=== PATIENT | female | born 1985 | race Caucasian/White ===

== ENCOUNTER 2018-04-02 01:21 | Emergency (ER) | payer OTHER, MEDICAID, SELFPAY ==
[2018-04-02 01:35] VITALS: BP 121/59; PULSE 82; RESP 16; TEMP 36.7; O2SAT 100; BMI 25.7
[2018-04-02 01:42] VITALS: BP 121/59; PULSE 82; RESP 16; TEMP 36.7; O2SAT 100; BMI 25.7
--- NOTE | 2018-04-02 02:24 | DI.RAD.S_ITS ---
PROCEDURE: XR ABDOMEN MIN 2V INDICATIONS: pain vomiting TECHNIQUE: 2 views of the abdomen were acquired. COMPARISON: [facility], , ABDOMEN ACUTE SERIES, 03/22/2011, 18:30. FINDINGS: Surgical changes and devices: Umbilical jewelry again noted. Bowel: No pneumoperitoneum. The bowel gas pattern is normal. Soft tissues: No masses; visualized solid organ contours appear normal in size. No suspicious abdominal calcifications. Bones: No suspicious bony abnormalities. IMPRESSION: Normal abdomen Dictated by: Toan Mustafa M.D. on 04/02/2018 at 9:25 Approved by: Toan Mustafa M.D. on 04/02/2018 at 9:26
[2018-04-02] MEDS: SODIUM CHLORIDE 0.9% 1,000 ML 1000 ML IV (02:32)
[2018-04-02] MEDS: ONDANSETRON 4 MG/2 ML INJ IV (02:32)
[2018-04-02] MEDS: KETOROLAC 60 MG/2 ML VIAL 30 MG IV (02:32)
[2018-04-02 02:42] LABS: Add Manual Diff / Slide Review NO; Basophils Percent Auto 0.5 % (0-2); Eosinophils Percent Auto 4.1 % (2-4); Hematocrit 40.3 % (36-46); Hemoglobin 13.9 g/dL (12.0-16.0); Lymphocytes Percent Auto 47.4 % (25-40); Mean Corpuscular HGB Conc 34.5 % (30-36); Mean Corpuscular Hemoglobin 32.8 PG (26-34); Mean Corpuscular Volume 95.3 fL (80-100); Monocytes Percent Auto 7.4 % (3-14); Neutrophils Absolute Auto 3400 /uL (3000-5900); Neutrophils Percent Auto 40.6 % (50-75); Platelet Count 242 X10^3/uL (150-400); Red Blood Cell Count 4.23 X10^6/uL (4.0-5.2); Red Cell Distribution Width 13.2 % (11.6-14.8); White Blood Cell Count 8.3 X10^3/uL (4.5-11.0)
[2018-04-02 02:47] LABS: Alanine Aminotransferase 278 IU/L (9-52); Albumin 4.4 g/dL (3.5-5.0); Albumin Globulin Ratio 1.5 (1.0-2.8); Alkaline Phosphatase 86 U/L (38-126); Aspartate Aminotransferase 64 IU/L (14-36); Bilirubin Total 0.3 mg/dL (0.2-1.3); Blood Urea Nitrogen 18 mg/dL (7-17); Calcium 9.4 mg/dL (8.4-10.2); Carbon Dioxide 28 mmol/L (22-32); Chloride 102 mmol/L (98-107); Estimated Glomerular Filt Rate > 60.0 mL/min (>60); Glucose 86 mg/dL (70-100); HEMOLYSIS < 15 (0-50); Lipase 78 U/L (23-300); Potassium 4.3 mmol/L (3.4-5.1); Sodium 141 mmol/L (137-145); Total Protein 7.4 g/dL (6.3-8.2)
--- NOTE | 2018-04-02 03:42 | ED_ITS ---
HPI - Abdominal Pain General Chief Complaint: Abdominal Pain Stated Complaint: abd pain, almost passed out Time Seen by Provider: 04/02/18 02:17 Source: patient Mode of arrival: ambulatory Limitations: no limitations History of Present Illness HPI narrative: Patient is a 33-year-old female presenting with abdominal pain and vomiting. She was fine earlier today when this evening pain woke her up. She has been vomiting she has intense cramping. No diarrhea. 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 Related Data Home Medications Medication Instructions Recorded Confirmed albuterol sulfate [Ventolin HFA] 2 puff INH Q4HP #0 02/07/12 sumatriptan succinate [Imitrex 4 mg SQ PRN #0 03/11/12 STATdose Pen] diazepam 5 mg PO PRN PRN #0 11/01/16 promethazine 25 mg PO Q6HP PRN #0 11/01/16 docusate sodium 100 mg PO QDAY #0 11/08/16 clonazepam 2 mg PO HSP PRN #0 02/11/17 cyclobenzaprine 10 mg PO TIDP PRN #0 02/11/17 Previous Rx's Medication Instructions Recorded ondansetron [Zofran ODT] 4 mg SUBLINGUAL Q6HP PRN #20 odt 02/11/17 albuterol sulfate [Ventolin HFA] 2 puff INH Q4HP PRN #1 ea 07/29/17 amoxicillin-pot clavulanate 875 mg PO Q12H #20 tab 07/29/17 [Augmentin] fluticasone [Flovent HFA] 3 puff INH BID #1 inh 07/29/17 prednisone 20 mg PO QDAY #8 tab 07/29/17 ondansetron 4 mg PO Q6-8H PRN #10 tab 04/02/18 Allergies Allergy/AdvReac Type Severity Reaction Status Date / Time varenicline Allergy Unknown Verified 04/02/18 04:52 hydrocodone AdvReac Mild VOMITING - Verified 04/02/18 04:49 CAN TAKE W/ PHENERGAN Review of Systems Review of Systems GENERAL: Denies chills, fatigue, malaise, fever, sweats, travel HEENT: Denies sinus pain, ear pain, sore throat, difficulty swallowing, neck pain RESPIRATORY: Denies dyspnea, cough, wheezing, hemoptysis, sputum. CARDIOVASCULAR: Denies chest pain, palpitations, orthopnea, edema GASTROINTESTINAL: See HPI : Denies dysuria, frequency, incontinence, hematuria, urinary retention, flank pain. MUSCULOSKELETAL: Denies weakness, joint pain, or bony pain SKIN: No rash, no erythema, no pruritus NEUROLOGIC: Denies weakness, dizziness, headache, numbness, change in speech, confusion PSYCHIATRIC: No concerning psychosocial issues. 12 point review of systems is negative except for those stated above and HPI PFSH Surgical History History of third molar tooth extraction Status post breast reduction Status post hysterectomy Status post laparoscopy (09/22/14) Social History Smoking Status: Former smoker Exam Initial Vital Signs Initial Vital Signs: Vital Signs Temperature 98.1 F 04/02/18 01:35 Pulse Rate 82 04/02/18 01:35 Respiratory Rate 16 04/02/18 01:35 Blood Pressure 121/59 H 04/02/18 01:35 Pulse Oximetry 100 04/02/18 01:35 GENERAL: In position appears in pain HEENT: Head atraumatic,EOMI, pupils reactive, neck is supple CARDIOVASCULAR: Regular rate and rhythm without murmurs, rubs or gallops. RESPIRATORY: Breath sounds equal bilaterally, no wheezes rales or rhonchi. ABDOMEN: Soft, no tender all across abdomen no localization no distension all no guarding no rebound negative Lamb sign slightly more tender in epigastric area : No CVA tenderness EXTREMITIES: Normal range of motion, no clubbing or edema. Neurovascularly intact NEUROLOGICAL: Alert and oriented x4.Normal gait and speech. Cranial nerves II through XII grossly intact. SKIN: Warm, dry, no laceration, no petechiae, no rashes or lesions. Course Orders Ordered: ED Orders 04/02/18 01:55 Complete Blood Count AUTO DIFF Stat Comprehensive Metabolic Panel Stat Lipase Stat 04/02/18 02:24 XR abdomen min 2V Stat 04/02/18 04:21 US abdomen complete Stat Discontinued Medications Sodium Chloride (Normal Saline 0.9%) 1,000 mls @ 1,000 mls/hr IV CONT RICHY Last Infusion: 04/02/18 04:56 Dose: 1,000 mls/hr Admin: 04/02/18 02:32 Dose: 1,000 mls/hr Ketorolac Tromethamine (Toradol) 30 mg IV NOW ONE Stop: 04/02/18 02:24 Last Admin: 04/02/18 02:32 Dose: 30 mg Morphine Sulfate (Morphine Sulfate) 2 mg IV NOW ONE Stop: 04/02/18 04:45 Last Admin: 04/02/18 04:56 Dose: 2 mg Ondansetron HCl (Zofran) 4 mg IV NOW ONE Stop: 04/02/18 02:24 Last Admin: 04/02/18 02:32 Dose: 4 mg Vital Signs - 8 hr 04/02/18 01:35 04/02/18 01:42 04/02/18 04:22 Temperature 98.1 F 98.1 F Pulse Rate 82 82 72 Respiratory Rate 16 16 16 Blood Pressure 121/59 H 121/59 H Blood Pressure [Left Arm] 98/44 L Pulse Oximetry 100 100 97 04/02/18 06:31 Temperature Pulse Rate 65 Respiratory Rate 17 Blood Pressure 98/72 Blood Pressure [Left Arm] Pulse Oximetry 98 MDM - Abdominal Pain Lab Data Attestation: I reviewed the patient's lab results. Result diagrams: 04/02/18 01:55 04/02/18 01:55 Lab Results 04/02/18 04/02/18 Range/Units 01:55 01:55 WBC 8.3 (4.5-11.0) X10^3/uL RBC 4.23 (4.0-5.2) X10^6/uL Hgb 13.9 (12.0-16.0) g/dL Hct 40.3 (36-46) % MCV 95.3 (80-100) fL MCH 32.8 (26-34) PG MCHC 34.5 (30-36) % RDW 13.2 (11.6-14.8) % Plt Count 242 (150-400) X10^3/uL Neut % (Auto) 40.6 L (50-75) % Lymph % (Auto) 47.4 H (25-40) % Toombs % (Auto) 7.4 (3-14) % Eos % (Auto) 4.1 H (2-4) % Baso % (Auto) 0.5 (0-2) % Neut # (Auto) 3400 (3294-3874) /uL Sodium 141 (137-145) mmol/L Potassium 4.3 (3.4-5.1) mmol/L Chloride 102 (98-107) mmol/L Carbon Dioxide 28 (22-32) mmol/L BUN 18 H (7-17) mg/dL Creatinine 0.90 (0.52-1.04) mg/dL Estimated GFR > 60.0 (>60) mL/min BUN/Creatinine Ratio 20.0 (6-22) Glucose 86 (70-100) mg/dL Calcium 9.4 (8.4-10.2) mg/dL Total Bilirubin 0.3 (0.2-1.3) mg/dL AST 64 H (14-36) IU/L ALT 278 H (9-52) IU/L Alkaline Phosphatase 86 (38-126) U/L Total Protein 7.4 (6.3-8.2) g/dL Albumin 4.4 (3.5-5.0) g/dL Globulin 3.0 (1.7-4.1) g/dL Albumin/Globulin Ratio 1.5 (1.0-2.8) Lipase 78 (23-300) U/L Imaging Data Abdominal x-ray: Attestation: I personally reviewed and interpreted this imaging study as follows: My impression: No acute obstruction US - abdomen: Radiologist's impression: services account manager report: Contracted gallbladder. Inhomogeneous hepatic steatosis statistically versus other hepatocellular process. Pancreas tail not optimally seen. Other findings above. MDM Narrative Medical decision making narrative: Patient is feeling better after morphine. ALT elevated more than AST. Unlikely to be alcohol. No sign of gallbladder disease. She has appointment with a GI specialist. At this time she is feeling better no sign of infection. Discharge Plan Departure Patient Disposition: Home, Self-Care Clinical Impression: Abdominal pain Discharge Date/Time: 04/02/18 06:31 Interventions: ED Discharge Assessment Last Done: 04/02/18 06:31 Instructions: DI for Abdominal Pain-Adult Activity Restrictions/Additional Instructions: *You have been diagnosed with abdominal pain *What to do: Blood work, x-ray and ultrasound are okay. Your liver enzymes ALT is slightly elevated recommend having this recheck *Continue to take medications as directed -Zofran every 6-8 hours if needed for nausea or vomiting *Follow up with your primary care provider in 2-3 days *Return to ER if you should have worsening pain, inability to tolerate fluids or any new, worsening or concerning symptoms Prescriptions: New ondansetron 4 mg tablet,disintegrating 4 mg PO Q6-8H PRN (Reason: nausea and vomiting) Qty: 10 RF: 0 No Action albuterol sulfate [Ventolin HFA] 90 MCG/PUFF HFA aerosol inhaler 2 puff INH Q4HP Qty: 0 RF: 0 sumatriptan succinate [Imitrex STATdose Pen] 4 MG/0.5 ML pen injector 4 mg SQ PRN Qty: 0 RF: 0 diazepam 5 MG tablet 5 mg PO PRN PRNQty: 0 RF: 0 promethazine 25 MG tablet 25 mg PO Q6HP PRNQty: 0 RF: 0 docusate sodium 100 MG capsule 100 mg PO QDAY Qty: 0 RF: 0 cyclobenzaprine 10 MG tablet 10 mg PO TIDP PRNQty: 0 RF: 0 clonazepam 2 MG tablet 2 mg PO HSP PRNQty: 0 RF: 0 ondansetron [Zofran ODT] 4 MG tablet,disintegrating 4 mg Sublingual Q6HP PRNQty: 20 RF: 0 amoxicillin-pot clavulanate [Augmentin] 875 MG/125 MG tablet 875 mg PO Q12H Qty: 20 RF: 0 prednisone 20 MG tablet 20 mg PO QDAY Qty: 8 RF: 0 albuterol sulfate [Ventolin HFA] 90 MCG/PUFF HFA aerosol inhaler 2 puff INH Q4HP PRNQty: 1 RF: 0 fluticasone [Flovent HFA] 12 GM HFA aerosol inhaler 3 puff INH BID Qty: 1 RF: 0
--- NOTE | 2018-04-02 04:21 | DI.US.S_ITS ---
PROCEDURE: US ABDOMEN COMPLETE INDICATIONS: ruq pain TECHNIQUE: Real-time scanning was performed of the abdominal and retroperitoneal organs, with image documentation. COMPARISON: [facility], US, ABDOMEN COMPLETE, 05/31/2014, 12:30. [facility], CT, KIDNEY/ URETER/BLADDER, 07/06/2014, 10:03. [facility], CT, ABDOMEN/PELVIS WITH CONTRAST, 09/24/2014, 1:51. [facility], CT, KIDNEY/ URETER/BLADDER, 11/27/2015, 21:02. [facility], CT, ABDOMEN/PELVIS WITH CONTRAST, 11/17/2016, 21:38. FINDINGS: Liver: Liver is normal in size and homogeneous in echotexture. Gallbladder: Gallbladder is contracted. No visible stones. Biliary ducts: Intrahepatic bile ducts are non-dilated. Extrahepatic bile duct caliber measures 5 mm. Normal is 6-7 mm or less in diameter, or 10 mm or less post-cholecystectomy. Pancreas: Visualized portions of the pancreas are sonographically normal. Tail is obscured. Spleen: Spleen is normal in size and homogeneous in echotexture. Kidneys: Kidneys are normal in size and echotexture. Right kidney measures 10.6 cm long; left kidney measures 12.3 cm long. No hydronephrosis or nephrolithiasis. No solid masses. Aorta: Visualized aorta is normal in caliber at less than 3 cm. central portion is obscured. Iliacs: Iliac vessels are obscured by gas IVC: Intrahepatic inferior vena cava is patent. Miscellaneous: No free abdominal fluid. IMPRESSION: No acute findings seen. Gallbladder is contracted and not well-visualized. Mid aorta and iliac vessels are obscured by bowel Dictated by: Toan Mustafa M.D. on 04/02/2018 at 9:29 Approved by: Toan Mustafa M.D. on 04/02/2018 at 9:31
[2018-04-02 04:22] VITALS: BP 98/44; PULSE 72; RESP 16; O2SAT 97
[2018-04-02] MEDS: MORPHINE 5 MG/ML INJ 2 MG IV (04:56)
[2018-04-02 06:31] VITALS: BP 98/72; PULSE 65; RESP 17; O2SAT 98
== END 2018-04-02 06:31 | disposition home or self-care (01) ==
PROVIDERS: Emergency Provider Emergency Medicine; PCP Family Medicine
DX: R10.9 Unspecified abdominal pain (principal)
CPT/HCPCS: 36591; 74019; 76700; 80053; 83690; 85025; 96361; 96374; 96375; 99283; 99284; J1885; J2270; J2405

== ENCOUNTER 2018-09-26 20:58 | Emergency (ER) | payer OTHER, MEDICAID, SELFPAY ==
[2018-09-26 21:14] VITALS: BP 121/88; PULSE 106; RESP 22; TEMP 36.7; O2SAT 100; BMI 26.6
[2018-09-26] MEDS: KETOROLAC 60 MG/2 ML VIAL IM (21:30)
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
[2018-09-26 22:02] VITALS: BP 116/74; PULSE 79; RESP 18; O2SAT 100
== END 2018-09-26 22:04 | disposition home or self-care (01) ==
PROVIDERS: Emergency Provider Emergency Medicine; PCP Family Medicine
DX: T22.60XA Corrosion of second degree of shoulder and upper limb, except wrist and hand, unspecified site, initial encounter (principal); T32.0 Corrosions involving less than 10% of body surface; Y99.0 Civilian activity done for income or pay; Y93.E9 Activity, other interior property and clothing maintenance
CPT/HCPCS: 99282; 99283; J1885

== ENCOUNTER 2018-12-03 07:03 | Emergency (ER) | payer OTHER, MEDICAID, SELFPAY ==
[2018-12-03 07:08] VITALS: BP 140/79; PULSE 98; RESP 18; TEMP 36.8; O2SAT 100; BMI 25.0
--- NOTE | 2018-12-03 07:57 | ED.UPPEXIN ---
HPI - Extremity Injury (Upper) General Chief Complaint: Extremity Injury, Upper Stated Complaint: thinks elbow is broken Time Seen by Provider: 12/03/18 07:33 Source: patient Mode of arrival: ambulatory Limitations: no limitations History of Present Illness HPI narrative: This is a 33-year-old female comes to the emergency department with complaint of left upper extremity injury. 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 They are moving a refrigerator. Her son is 16 and she states very awkward and while they were trying to slide removed the Fridge her left arm got stuck between the wall in the Fridge. She states that it took a minute or 2 for them to be able to remove the refrigerator. Patient has a lot of swelling and bruising over the lateral condyle of the left elbow. She states she has pain in the elbow as well as radiating down the arm and into the fingers as well as up into the shoulder area. She states the shoulder itself was not caught between the Fridge and the wall. Patient can move her fingers but it is uncomfortable. She states she has pain particularly in her pinky finger. States she has tingling up and down her entire arm. She is able to move the elbow as well as the shoulder. She has some abrasions and scrapes as well over the elbow. She believes her tetanus is up-to-date. She has a history of migraines, fibromyalgia, hysterectomy as well as single oophorectomy. Related Data Home Medications Medication Instructions Recorded Confirmed albuterol sulfate [Ventolin HFA] 2 puff INH Q4HP #0 02/07/12 sumatriptan succinate [Imitrex 4 mg SQ PRN #0 03/11/12 STATdose Pen] diazepam 5 mg PO PRN PRN #0 11/01/16 promethazine 25 mg PO Q6HP PRN #0 11/01/16 docusate sodium 100 mg PO QDAY #0 11/08/16 clonazepam 2 mg PO HSP PRN #0 02/11/17 cyclobenzaprine 10 mg PO TIDP PRN #0 02/11/17 Previous Rx's Medication Instructions Recorded ondansetron [Zofran ODT] 4 mg SUBLINGUAL Q6HP PRN #20 odt 02/11/17 albuterol sulfate [Ventolin HFA] 2 puff INH Q4HP PRN #1 ea 07/29/17 amoxicillin-pot clavulanate 875 mg PO Q12H #20 tab 07/29/17 [Augmentin] fluticasone propionate [Flovent 3 puff INH BID #1 inh 07/29/17 HFA] prednisone 20 mg PO QDAY #8 tab 07/29/17 ondansetron 4 mg PO Q6-8H PRN #10 tab 04/02/18 Allergies Allergy/AdvReac Type Severity Reaction Status Date / Time varenicline Allergy Unknown Verified 12/03/18 07:38 hydrocodone AdvReac Mild VOMITING - Verified 12/03/18 07:38 CAN TAKE W/ PHENERGAN Review of Systems Review of Systems ROS Unobtainable: All systems reviewed & are unremarkable except as noted in HPI and below Musculoskeletal Reports as per HPI, Reports arthralgias (left elbow), Reports joint swelling, Reports limited range of motion, Denies muscle weakness, Reports numbness, Reports radiating pain into limb, Reports stiffness and Reports tingling Integumentary/Breasts Reports as per HPI, Reports unusual bruising and Reports wounds (abrasions over elbow.) Neurologic Denies focal weakness, Reports numbness and Reports tingling [facility] Medical History Migraines (Chronic) Up to date with tetanus toxoid immunization (Acute) Surgical History History of third molar tooth extraction Status post breast reduction Status post hysterectomy Status post laparoscopy (09/22/14) Social History Smoking Status: Former smoker Social History Smoking Status: Former smoker Exam Narrative Exam Narrative: GENERAL: Alert and oriented x three, well-nourished, well-appearing female in mild distress. HEENT: Head normocephalic, atraumatic, EOMI, pupils reactive, face symmetric, moist mucous membranes NECK: Supple, full range of motion CARDIOVASCULAR: Regular rate and rhythm without murmurs, rubs or gallops. RESPIRATORY: Breath sounds equal bilaterally, no wheezes rales or rhonchi. ABDOMEN: Soft, nontender. Normoactive bowel sounds all 4 quadrants. No guarding or rebound, rigidity, no mass EXTREMITIES: Normal range of motion The left upper extremity, patient has slightly decreased circular sawyer stone on the left comparison to the right but has full range of motion of her fingers and I suspect some his discomfort and not wishing to squeeze tightly, patient has some bruising over the lateral condyle some around the elbow, she has very mild tenderness over the lateral condyle. None over the medial. The patient does not have any other bony tenderness throughout the hand, forearm or upper extremity. She has normal sensation throughout to light touch. She has 2+ radial pulse. Less than 2 seconds capillary refill in all 5 fingers. no clubbing or edema. Neurovascularly intact NEUROLOGICAL: Cranial nerves II through XII grossly intact. Moving all extremities SKIN: Warm, dry, no petechiae, \ Patient has several small abrasions over the lateral elbow the longus which is a cm and a half. They are superficial. Initial Vital Signs Initial Vital Signs: Vital Signs Temperature 98.3 F 12/03/18 07:08 Pulse Rate 98 H 12/03/18 07:08 Respiratory Rate 18 12/03/18 07:08 Blood Pressure 140/79 12/03/18 07:08 Pulse Oximetry 100 12/03/18 07:08 Course Orders Ordered: ED Orders 12/03/18 07:56 XR elbow LT min 3V Stat Vital Signs - 8 hr 12/03/18 07:08 12/03/18 08:48 Temperature 98.3 F Pulse Rate 98 H 77 Respiratory Rate 18 16 Blood Pressure 140/79 Blood Pressure [Right Arm] 113/62 Pulse Oximetry 100 98 MDM - Extremity Injury (Upper) Imaging Data Left elbow xray: Radiologist's impression: [address] [address] XRay Report Signed Patient: Coral Mendoza LMR#: [id number] : 1985Acct:[id number] Age/Sex: 33 / FDate of Service: 12/03/18 Loc: ED Accession Number: [id number] Procedure: XR elbow LT min 3V Ordering Provider: Mamta Nunez D.O. PROCEDURE: XR ELBOW LT MIN 3V INDICATIONS: bruising over lateral condyle, was moving fridge TECHNIQUE: 3 views of the elbow were acquired. COMPARISON: None. FINDINGS: Bones: No fractures or dislocations. No suspicious bony lesions. Soft tissues: No elbow joint effusion. No suspicious soft tissue calcifications. IMPRESSION: Intact left elbow. Dictated by: Ambar Bejarano M.D. on 12/03/2018 at 8:37 Approved by: Ambar Bejarano M.D. on 12/03/2018 at 8:38 [facility] Narrative Medical decision making narrative: Patient's x-ray is negative. She has range of motion she does have some contusion over the condyle. Discussed and she asked if she can sling for a day or 2. We did give her 1 and a discussed with her risks for frozen shoulder and she needs to make sure and use move her shoulder regularly to avoid this. Patient states that she is not supposed to have NSAIDs secondary to prior ulcers we discussed she can do Tylenol. She has a prescription for Flexeril if she needs it. Ice and/or heat as needed and rest. Discharge Plan Departure Patient Disposition: Home Clinical Impression: Contusion of elbow, left Discharge Date/Time: 12/03/18 09:06 Interventions: ED Discharge Assessment Last Done: 12/03/18 09:06 Instructions: DI for Elbow Pain Activity Restrictions/Additional Instructions: Follow up with primary care in 7-10 days if symptoms are not improving. You may take Tylenol up to a 1000 mg every 8 hours needed. If you tolerate NSAIDs you may take ibuprofen 600 mg every 6 hours as needed. You may use ice and/or heat to the affected area as tolerated. Wound Care: Keep wound(s) clean and dry. Wash daily with soap and water only. Do not use over the counter products (alcohol or peroxide)on the wounds unless instructed by a physician. If wound condition worsens (increased/expanding redness, developing fluid blisters, or worsening pain), either contact your doctor for an urgent re-assessment , or return to the Emergency Department. Return if fever greater than 100.4 Fahrenheit, increased swelling, increasing pain or worsening symptoms such as increased discharge or spreading redness. New weakness, loss of sensation, inability to circular sawyer stone or hold objects, or other new or concerning symptoms. Prescriptions: No Action albuterol sulfate [Ventolin HFA] 90 MCG/PUFF HFA aerosol inhaler 2 puff INH Q4HP Qty: 0 RF: 0 sumatriptan succinate [Imitrex STATdose Pen] 4 MG/0.5 ML pen injector 4 mg SQ PRN Qty: 0 RF: 0 diazepam 5 MG tablet 5 mg PO PRN PRNQty: 0 RF: 0 promethazine 25 MG tablet 25 mg PO Q6HP PRNQty: 0 RF: 0 docusate sodium 100 MG capsule 100 mg PO QDAY Qty: 0 RF: 0 cyclobenzaprine 10 MG tablet 10 mg PO TIDP PRNQty: 0 RF: 0 clonazepam 2 MG tablet 2 mg PO HSP PRNQty: 0 RF: 0 ondansetron [Zofran ODT] 4 MG tablet,disintegrating 4 mg Sublingual Q6HP PRNQty: 20 RF: 0 amoxicillin-pot clavulanate [Augmentin] 875 MG/125 MG tablet 875 mg PO Q12H Qty: 20 RF: 0 prednisone 20 MG tablet 20 mg PO QDAY Qty: 8 RF: 0 albuterol sulfate [Ventolin HFA] 90 MCG/PUFF HFA aerosol inhaler 2 puff INH Q4HP PRNQty: 1 RF: 0 fluticasone propionate [Flovent HFA] 12 GM HFA aerosol inhaler 3 puff INH BID Qty: 1 RF: 0 ondansetron 4 mg tablet,disintegrating 4 mg PO Q6-8H PRN (Reason: nausea and vomiting) Qty: 10 RF: 0 Referrals: Dre Maxwell MD [Primary Care Provider] - Stand Alone Forms: Work Release Note
--- NOTE | 2018-12-03 08:03 | ED_ITS ---
HPI - Extremity Injury (Upper) General Chief Complaint: Extremity Injury, Upper Stated Complaint: thinks elbow is broken Time Seen by Provider: 12/03/18 07:33 Source: patient Mode of arrival: ambulatory Limitations: no limitations History of Present Illness HPI narrative: This is a 33-year-old female comes to the emergency department with complaint of left upper extremity injury. 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 They are moving a refrigerator. Her son is 16 and she states very awkward and while they were trying to slide removed the Fridge her left arm got stuck between the wall in the Fridge. She states that it took a minute or 2 for them to be able to remove the refrigerator. Patient has a lot of swelling and bruising over the lateral condyle of the left elbow. She states she has pain in the elbow as well as radiating down the arm and into the fingers as well as up into the shoulder area. She states the shoulder itself was not caught between the Fridge and the wall. Patient can move her fingers but it is uncomfortable. She states she has pain particularly in her pinky finger. States she has tingling up and down her entire arm. She is able to move the elbow as well as the shoulder. She has some abrasions and scrapes as well over the elbow. She believes her tetanus is up-to-date. She has a history of migraines, fibromyalgia, hysterectomy as well as single oophorectomy. Related Data Home Medications Medication Instructions Recorded Confirmed albuterol sulfate [Ventolin HFA] 2 puff INH Q4HP #0 02/07/12 sumatriptan succinate [Imitrex 4 mg SQ PRN #0 03/11/12 STATdose Pen] diazepam 5 mg PO PRN PRN #0 11/01/16 promethazine 25 mg PO Q6HP PRN #0 11/01/16 docusate sodium 100 mg PO QDAY #0 11/08/16 clonazepam 2 mg PO HSP PRN #0 02/11/17 cyclobenzaprine 10 mg PO TIDP PRN #0 02/11/17 Previous Rx's Medication Instructions Recorded ondansetron [Zofran ODT] 4 mg SUBLINGUAL Q6HP PRN #20 odt 02/11/17 albuterol sulfate [Ventolin HFA] 2 puff INH Q4HP PRN #1 ea 07/29/17 amoxicillin-pot clavulanate 875 mg PO Q12H #20 tab 07/29/17 [Augmentin] fluticasone propionate [Flovent 3 puff INH BID #1 inh 07/29/17 HFA] prednisone 20 mg PO QDAY #8 tab 07/29/17 ondansetron 4 mg PO Q6-8H PRN #10 tab 04/02/18 Allergies Allergy/AdvReac Type Severity Reaction Status Date / Time varenicline Allergy Unknown Verified 12/03/18 07:38 hydrocodone AdvReac Mild VOMITING - Verified 12/03/18 07:38 CAN TAKE W/ PHENERGAN Review of Systems Review of Systems ROS Unobtainable: All systems reviewed & are unremarkable except as noted in HPI and below Musculoskeletal Reports as per HPI, Reports arthralgias (left elbow), Reports joint swelling, Reports limited range of motion, Denies muscle weakness, Reports numbness, Reports radiating pain into limb, Reports stiffness and Reports tingling Integumentary/Breasts Reports as per HPI, Reports unusual bruising and Reports wounds (abrasions over elbow.) Neurologic Denies focal weakness, Reports numbness and Reports tingling [facility] Medical History Migraines (Chronic) Up to date with tetanus toxoid immunization (Acute) Surgical History History of third molar tooth extraction Status post breast reduction Status post hysterectomy Status post laparoscopy (09/22/14) Social History Smoking Status: Former smoker Social History Smoking Status: Former smoker Exam Narrative Exam Narrative: GENERAL: Alert and oriented x three, well-nourished, well- appearing female in mild distress. HEENT: Head normocephalic, atraumatic, EOMI, pupils reactive, face symmetric, moist mucous membranes NECK: Supple, full range of motion CARDIOVASCULAR: Regular rate and rhythm without murmurs, rubs or gallops. RESPIRATORY: Breath sounds equal bilaterally, no wheezes rales or rhonchi. ABDOMEN: Soft, nontender. Normoactive bowel sounds all 4 quadrants. No guarding or rebound, rigidity, no mass EXTREMITIES: Normal range of motion The left upper extremity, patient has slightly decreased cottage parent on the left comparison to the right but has full range of motion of her fingers and I suspect some his discomfort and not wishing to squeeze tightly, patient has some bruising over the lateral condyle some around the elbow, she has very mild tenderness over the lateral condyle. None over the medial. The patient does not have any other bony tenderness throughout the hand, forearm or upper extremity. She has normal sensation throughout to light touch. She has 2+ radial pulse. Less than 2 seconds capillary refill in all 5 fingers. no clubbing or edema. Neurovascularly intact NEUROLOGICAL: Cranial nerves II through XII grossly intact. Moving all extremities SKIN: Warm, dry, no petechiae, \ Patient has several small abrasions over the lateral elbow the longus which is a cm and a half. They are superficial. Initial Vital Signs Initial Vital Signs: Vital Signs Temperature 98.3 F 12/03/18 07:08 Pulse Rate 98 H 12/03/18 07:08 Respiratory Rate 18 12/03/18 07:08 Blood Pressure 140/79 12/03/18 07:08 Pulse Oximetry 100 12/03/18 07:08 Course Orders Ordered: ED Orders 12/03/18 07:56 XR elbow LT min 3V Stat Vital Signs - 8 hr 12/03/18 07:08 12/03/18 08:48 Temperature 98.3 F Pulse Rate 98 H 77 Respiratory Rate 18 16 Blood Pressure 140/79 Blood Pressure [Right Arm] 113/62 Pulse Oximetry 100 98 MDM - Extremity Injury (Upper) Imaging Data Left elbow xray: Radiologist's impression: [address] [address] XRay Report Signed Patient: Coral Mendoza LMR#: [id number] : 1985Acct:[id number] Age/Sex: 33 / FDate of Service: 12/03/18 Loc: ED Accession Number: [id number] Procedure: XR elbow LT min 3V Ordering Provider: Mamta Nunez D.O. PROCEDURE: XR ELBOW LT MIN 3V INDICATIONS: bruising over lateral condyle, was moving fridge TECHNIQUE: 3 views of the elbow were acquired. COMPARISON: None. FINDINGS: Bones: No fractures or dislocations. No suspicious bony lesions. Soft tissues: No elbow joint effusion. No suspicious soft tissue calcifications. IMPRESSION: Intact left elbow. Dictated by: Ambar Bejarano M.D. on 12/03/2018 at 8:37 Approved by: Ambar Bejarano M.D. on 12/03/2018 at 8:38 [facility] Narrative Medical decision making narrative: Patient's x-ray is negative. She has range of motion she does have some contusion over the condyle. Discussed and she asked if she can sling for a day or 2. We did give her 1 and a discussed with her risks for frozen shoulder and she needs to make sure and use move her shou lder regularly to avoid this. Patient states that she is not supposed to have NSAIDs secondary to prior ulcers we discussed she can do Tylenol. She has a prescription for Flexeril if she needs it. Ice and/or heat as needed and rest. Discharge Plan Departure Patient Disposition: Home Clinical Impression: Contusion of elbow, left Discharge Date/Time: 12/03/18 09:06 Interventions: ED Discharge Assessment Last Done: 12/03/18 09:06 Instructions: DI for Elbow Pain Activity Restrictions/Additional Instructions: Follow up with primary care in 7-10 days if symptoms are not improving. You may take Tylenol up to a 1000 mg every 8 hours needed. If you tolerate NSAIDs you may take ibuprofen 600 mg every 6 hours as needed. You may use ice and/or heat to the affected area as tolerated. Wound Care: Keep wound(s) clean and dry. Wash daily with soap and water only. Do not use over the counter products (alcohol or peroxide)on the wounds unless instructed by a physician. If wound condition worsens (increased/expanding redness, developing fluid blisters, or worsening pain), either contact your doctor for an urgent re- assessment , or return to the Emergency Department. Return if fever greater than 100.4 Fahrenheit, increased swelling, increasing pain or worsening symptoms such as increased discharge or spreading redness. New weakness, loss of sensation, inability to cottage parent or hold objects, or other new or concerning symptoms. Prescriptions: No Action albuterol sulfate [Ventolin HFA] 90 MCG/PUFF HFA aerosol inhaler 2 puff INH Q4HP Qty: 0 RF: 0 sumatriptan succinate [Imitrex STATdose Pen] 4 MG/0.5 ML pen injector 4 mg SQ PRN Qty: 0 RF: 0 diazepam 5 MG tablet 5 mg PO PRN PRNQty: 0 RF: 0 promethazine 25 MG tablet 25 mg PO Q6HP PRNQty: 0 RF: 0 docusate sodium 100 MG capsule 100 mg PO QDAY Qty: 0 RF: 0 cyclobenzaprine 10 MG tablet 10 mg PO TIDP PRNQty: 0 RF: 0 clonazepam 2 MG tablet 2 mg PO HSP PRNQty: 0 RF: 0 ondansetron [Zofran ODT] 4 MG tablet,disintegrating 4 mg Sublingual Q6HP PRNQty: 20 RF: 0 amoxicillin-pot clavulanate [Augmentin] 875 MG/125 MG tablet 875 mg PO Q12H Qty: 20 RF: 0 prednisone 20 MG tablet 20 mg PO QDAY Qty: 8 RF: 0 albuterol sulfate [Ventolin HFA] 90 MCG/PUFF HFA aerosol inhaler 2 puff INH Q4HP PRNQty: 1 RF: 0 fluticasone propionate [Flovent HFA] 12 GM HFA aerosol inhaler 3 puff INH BID Qty: 1 RF: 0 ondansetron 4 mg tablet,disintegrating 4 mg PO Q6-8H PRN (Reason: nausea and vomiting) Qty: 10 RF: 0 Referrals: Dre Maxwell MD [Primary Care Provider] - Stand Alone Forms: Work Release Note
[2018-12-03 08:48] VITALS: BP 113/62; PULSE 77; RESP 16; O2SAT 98
== END 2018-12-03 09:06 | disposition home or self-care (01) ==
PROVIDERS: Emergency Provider Emergency Medicine; PCP Family Medicine
DX: S50.02XA Contusion of left elbow, initial encounter (principal)
CPT/HCPCS: 73080; 99282; 99283

== ENCOUNTER → 2019-02-02 10:40 | Outpatient (CLI) | payer OTHER, MEDICAID, SELFPAY ==
--- NOTE | 2019-02-02 10:44 | DI.RAD.S_ITS ---
PROCEDURE: XR ELBOW LT MIN 3V INDICATIONS: Left elbow pain TECHNIQUE: 3 views of the elbow were acquired. COMPARISON: [facility], CR, XR ELBOW LT MIN 3V, 12/03/2018, 8:08. FINDINGS: Bones: No fractures or dislocations. No suspicious bony lesions. Soft tissues: No elbow joint effusion. No suspicious soft tissue calcifications. IMPRESSION: No fracture or subluxation, no joint effusion seen. Dictated by: Siddharth Parsons M.D. on 02/02/2019 at 11:51 Approved by: Siddharth Parsons M.D. on 02/02/2019 at 11:51
== END ==
PROVIDERS: PCP Family Medicine; Visit Provider Physician Assistant
DX: M25.522 Pain in left elbow (principal)
CPT/HCPCS: 73080

== ENCOUNTER 2019-02-17 11:55 | Emergency (ER) | payer OTHER, MEDICAID, SELFPAY ==
[2019-02-17 11:58] VITALS: BP 122/73; PULSE 85; RESP 24; TEMP 36.5; O2SAT 97
--- NOTE | 2019-02-17 12:04 | DI.RAD.S_ITS ---
PROCEDURE: XR CHEST 1V INDICATIONS: chest pain TECHNIQUE: One view of the chest was acquired. COMPARISON: [facility], , CHEST 2 VIEW, 07/29/2017, 18:35. FINDINGS: Surgical changes and devices: None. Lungs and pleura: Lungs are clear. No pleural effusions or pneumothorax. Mediastinum: Mediastinal contours appear normal. Heart size is normal. Bones and chest wall: No suspicious bony lesions. Overlying soft tissues appear unremarkable. IMPRESSION: No acute cardiopulmonary disease. Dictated by: Aysha Jasso M.D. on 02/17/2019 at 12:23 Approved by: Aysha Jasso M.D. on 02/17/2019 at 12:23
--- NOTE | 2019-02-17 12:07 | ED.GENADULT ---
HPI - General Adult General Chief complaint: Chest Pain Stated complaint: Lungs and Heart need to be checked out Time Seen by Provider: 02/17/19 12:06 Source: patient Mode of arrival: ambulatory Limitations: no limitations History of Present Illness HPI narrative: Patient is a 33-year-old female who received a call from her primary provider earlier today. It appears that for the past several weeks the patient has had a cough and shortness of breath. Her primary provider was concerned about possible pneumonia or a pulmonary embolism. He recommended that if the studies here in the emergency department were negative to start her on some prednisone. Patient denies any fevers. Has not had a productive cough. No abdominal pain. No chest pain. Has not tried anything for symptoms. Related Data Home Medications Medication Instructions Recorded Confirmed diazepam 5 mg PO PRN PRN #0 11/01/16 02/17/19 clonazepam 2 mg PO BID #0 02/11/17 01/21/19 albuterol sulfate [Ventolin HFA] 2 puff INH Q4HP PRN 02/17/19 dextroamphetamine-amphetamine 30 mg PO TID 02/17/19 lorazepam 1 mg PO BID 02/17/19 02/17/19 naloxone [Narcan] 1 spray INTRANASAL PRN PRN 02/17/19 02/17/19 omeprazole 20 mg PO BID 02/17/19 02/17/19 Previous Rx's Medication Instructions Recorded prednisone 60 mg PO DAILY 5 Days #15 tab 02/17/19 Allergies Allergy/AdvReac Type Severity Reaction Status Date / Time varenicline Allergy Unknown Verified 02/01/19 18:22 hydrocodone AdvReac Mild VOMITING - Verified 02/01/19 18:22 CAN TAKE W/ PHENERGAN Review of Systems Constitutional Denies fever(s) and Denies headache(s) ENT Ears, Nose, Mouth, and Throat: Denies headache(s) Cardiovascular Denies chest pain and Reports dyspnea Respiratory Denies cough and Reports dyspnea Gastrointestinal Gastrointestinal: Denies abdominal pain, Denies nausea and Denies vomiting Musculoskeletal Denies myalgias and Denies arthralgias Integumentary/Breasts Denies rash Neurologic Denies headache(s) Hematologic/Lymphatic Denies easy bleeding and Denies easy bruising FOR[facility], LAT[facility] Medical History Up to date with tetanus toxoid immunization (Acute) Migraines (Chronic) Social History Smoking Status: Current every day smoker Exam Initial Vital Signs Initial Vital Signs: Vital Signs Temperature 97.7 F 02/17/19 11:58 Pulse Rate 85 02/17/19 11:58 Respiratory Rate 24 02/17/19 11:58 Blood Pressure 122/73 02/17/19 11:58 Pulse Oximetry 97 02/17/19 11:58 Const General: cooperative, comfortable, well developed, well groomed and No acute distress Orientation: alert, awake and oriented x3 HENMT Head: normal to inspection and normocephalic Resp Effort & Inspection: normal respiratory effort Auscultation: clear to auscultation bilaterally Cardio Rate: regular rate Rhythm: regular rhythm Pulses: radial pulses present Skin Lesions: no lesions Rashes: no rashes Neuro General: alert and awake Cognition: normal cognition Speech: speech normal Extrem General: normal to inspection, capillary refill normal and No edema Psych Appearance: grossly normal and well kempt Scores GCS [place] coma scale eye opening: Spontaneous [place] coma scale verbal response: Orientated [place] coma scale motor response: Obey commands [place] coma scale total score: 15 Course Orders Ordered: ED Orders 02/17/19 12:04 XR chest 1V Stat EKG-12 Lead Stat 02/17/19 12:42 Complete Blood Count AUTO DIFF Stat Comprehensive Metabolic Panel Stat Lipase Stat Partial Thromboplastin Time Stat Test Serum,Qual Stat Prothrombin Time INR Stat Thyroid Stimulating Hormone Stat Troponin & CK Cardiac Panel Stat 02/17/19 12:47 CT angio chest PE protocol Stat Vital Signs - 8 hr 02/17/19 11:58 Temperature 97.7 F Pulse Rate 85 Respiratory Rate 24 Blood Pressure 122/73 Pulse Oximetry 97 Medical Decision Making Lab Data Lab results reviewed: Yes I reviewed the patient's lab results. Result diagrams: 02/17/19 12:42 02/17/19 12:42 Lab Results 02/17/19 02/17/19 02/17/19 Range/Units 12:42 12:42 12:42 WBC 6.2 (4.5-11.0) X10^3/uL RBC 3.89 L (4.0-5.2) X10^6/uL Hgb 12.9 (12.0-16.0) g/dL Hct 37.5 (36-46) % MCV 96.5 (80-100) fL MCH 33.1 (26-34) PG MCHC 34.3 (30-36) % RDW 12.6 (11.6-14.8) % Plt Count 220 (150-400) X10^3/uL Neut % (Auto) 45.7 L (50-75) % Lymph % (Auto) 45.2 H (25-40) % [place] % (Auto) 5.9 (3-14) % Eos % (Auto) 2.7 (2-4) % Baso % (Auto) 0.5 (0-2) % Neut # (Auto) 2800 (5940-4953) /uL Lymph # (Auto) 2800 (8207-4777) /uL [place] # (Auto) 400 (0-900) /uL Eos # (Auto) 200 (0-450) /uL Baso # (Auto) 0 (0-100) /uL PT 11.6 (10.1-12.7) SECONDS INR 1.0 (0.9-1.3) APTT 33 (26.4-36.2) SECONDS Sodium 141 (137-145) mmol/L Potassium 4.0 (3.4-5.1) mmol/L Chloride 110 H (98-107) mmol/L Carbon Dioxide 24 (22-32) mmol/L BUN 16 (7-17) mg/dL Creatinine 0.60 (0.52-1.04) mg/dL Estimated GFR > 60.0 (>60) mL/min BUN/Creatinine Ratio 26.7 H (6-22) Glucose 89 (70-100) mg/dL Calcium 9.2 (8.4-10.2) mg/dL Total Bilirubin 0.6 (0.2-1.3) mg/dL AST 16 (14-36) IU/L ALT 10 (9-52) IU/L Alkaline Phosphatase 65 (38-126) U/L Total Creatine Kinase 57 (30-135) U/L CK-MB (CK-2) TNP CK-MB (CK-2) Rel Index TNP Troponin I < 0.012 (0.01-0.034) ng/mL Total Protein 6.6 (6.3-8.2) g/dL Albumin 4.0 (3.5-5.0) g/dL Globulin 2.6 (1.7-4.1) g/dL Albumin/Globulin Ratio 1.5 (1.0-2.8) Lipase 106 (23-300) U/L TSH (0.47-4.68) uIU/mL Serum , Qual (Negative) 02/17/19 02/17/19 Range/Units 12:42 12:42 WBC (4.5-11.0) X10^3/uL RBC (4.0-5.2) X10^6/uL Hgb (12.0-16.0) g/dL Hct (36-46) % MCV (80-100) fL MCH (26-34) PG MCHC (30-36) % RDW (11.6-14.8) % Plt Count (150-400) X10^3/uL Neut % (Auto) (50-75) % Lymph % (Auto) (25-40) % [place] % (Auto) (3-14) % Eos % (Auto) (2-4) % Baso % (Auto) (0-2) % Neut # (Auto) (9696-6746) /uL Lymph # (Auto) (1983-0216) /uL [place] # (Auto) (0-900) /uL Eos # (Auto) (0-450) /uL Baso # (Auto) (0-100) /uL PT (10.1-12.7) SECONDS INR (0.9-1.3) APTT (26.4-36.2) SECONDS Sodium (137-145) mmol/L Potassium (3.4-5.1) mmol/L Chloride (98-107) mmol/L Carbon Dioxide (22-32) mmol/L BUN (7-17) mg/dL Creatinine (0.52-1.04) mg/dL Estimated GFR (>60) mL/min BUN/Creatinine Ratio (6-22) Glucose (70-100) mg/dL Calcium (8.4-10.2) mg/dL Total Bilirubin (0.2-1.3) mg/dL AST (14-36) IU/L ALT (9-52) IU/L Alkaline Phosphatase (38-126) U/L Total Creatine Kinase (30-135) U/L CK-MB (CK-2) CK-MB (CK-2) Rel Index Troponin I (0.01-0.034) ng/mL Total Protein (6.3-8.2) g/dL Albumin (3.5-5.0) g/dL Globulin (1.7-4.1) g/dL Albumin/Globulin Ratio (1.0-2.8) Lipase (23-300) U/L TSH 0.28 L (0.47-4.68) uIU/mL Serum , Qual Negative (Negative) Imaging Data Chest x-ray: Radiologist's impression: [address] [address] XRay Report Signed Patient: Coral Gallardo LMR#: [id number] : 1985Acct:[id number] Age/Sex: 33 / FDate of Service: 02/17/19 Loc: ED Accession Number: [id number] Procedure: XR chest 1V Ordering Provider: Kentrell Friend D.O. PROCEDURE: XR CHEST 1V INDICATIONS: chest pain TECHNIQUE: One view of the chest was acquired. COMPARISON: [facility], CHEST 2 VIEW, 07/29/2017, 18:35. FINDINGS: Surgical changes and devices: None. Lungs and pleura: Lungs are clear. No pleural effusions or pneumothorax. Mediastinum: Mediastinal contours appear normal. Heart size is normal. Bones and chest wall: No suspicious bony lesions. Overlying soft tissues appear unremarkable. IMPRESSION: No acute cardiopulmonary disease. Dictated by: Aysha Jasso M.D. on 02/17/2019 at 12:23 Approved by: Aysha Jasso M.D. on 02/17/2019 at 12:23 CT chest: Radiologist's impression: [address] [address] [address] Scan Report Signed Patient: Coral Gallardo LMR#: [id number] : 1985Acct:[id number] Age/Sex: 33 / FDate of Service: 02/17/19 Loc: ED Accession Number: [id number] Procedure: CT angio chest PE protocol Ordering Provider: Kentrell Friend D.O. PROCEDURE: CT ANGIO CHEST PE PROTOCOL INDICATIONS: Chest pain, shortness of breath, tachycardia TECHNIQUE: After the administration of intravenous contrast, 2 mm thick sections acquired from the pulmonary apices to the posterior costophrenic angles. 3-dimensional maximum intensity projection (MIP) coronal and sagittal reformats were then acquired through the thorax. For radiation dose reduction, the following was used: automated exposure control, adjustment of mA and/or kV according to patient size. COMPARISON: [facility], CR, XR CHEST 1V, 02/17/2019, 12:12. FINDINGS: Image quality: Excellent. Pulmonary arteries: Pulmonary arteries are normal in size, and demonstrate no intraluminal filling defects to suggest central pulmonary embolism. Lungs and pleura: Lungs are clear. No pleural effusions or pneumothorax. Central and peripheral airways are patent. Mediastinum: Heart size is normal, without pericardial effusion. No mediastinal or hilar adenopathy. Thoracic aorta is normal in caliber and enhancement. Esophagus is normal in caliber, without a significant hiatal hernia. Bones and chest wall: No suspicious bony lesions. Ribs and thoracic spine appear intact throughout. Thyroid gland demonstrates no significant CT abnormality. No axillary or supraclavicular adenopathy. Abdomen: Visualized upper abdominal solid organs appear normal in the early arterial phase of enhancement. IMPRESSION: Negative for pulmonary embolism. Dictated by: Robert Aceves M.D. on 02/17/2019 at 12:43 Approved by: Robert Aceves M.D. on 02/17/2019 at 12:45 ECG Data Attestation: I personally reviewed and interpreted this ECG as follows: Prior ECG tracings: not available for review Interpretation: Sinus rhythm Ventricular rate is 79 Normal axis Normal QRS Normal QTC No ST T wave changes MDM Narrative Medical decision making narrative: Patient is no indication pneumonia. CTA shows no signs of pulmonary embolism. She is not hypoxic. Not in any respiratory distress. Was sent home on a short course of steroids. The TSH was ordered per her request. It is suggestive of hyperthyroid. She states that she has been hyperthyroid when she was . She was informed that she needed to talk with her primary doctor regarding follow-up with this. She expressed understanding and agreement plan. Discharge Plan Departure Patient Disposition: Home Clinical Impression: Breath shortness, Hyperthyroidism Instructions: How to Manage Shortness of Breath Activity Restrictions/Additional Instructions: Take the steroids as directed. Contact your primary care provider to continue treatment with your shortness of breath and also to talk about your thyroid issues. Return to the emergency department for any new or worsening symptoms Prescriptions: New prednisone 20 mg tablet 60 mg PO DAILY 5 Days Qty: 15 RF: 0 No Action diazepam 5 MG tablet 5 mg PO PRN PRN (Reason: Anxiety) Qty: 0 RF: 0 clonazepam 2 MG tablet 2 mg PO BID Qty: 0 RF: 0 dextroamphetamine-amphetamine 30 mg tablet 30 mg PO TID RF: 0 omeprazole 20 mg capsule,delayed release(DR/EC) 20 mg PO BID RF: 0 lorazepam 1 mg tablet 1 mg PO BID RF: 0 Narcan 4 mg/actuation spray,non-aerosol 1 spray intranasal PRN PRN (Reason: Opiate Reversal) RF: 0 albuterol sulfate [Ventolin HFA] 90 MCG/PUFF HFA aerosol inhaler 2 puff INH Q4HP PRN (Reason: Shortness Of Breath) RF: 0 Referrals: Dre Maxwell MD [Primary Care Provider] -
--- NOTE | 2019-02-17 12:47 | DI.CT.S_ITS ---
PROCEDURE: CT ANGIO CHEST PE PROTOCOL INDICATIONS: Chest pain, shortness of breath, tachycardia TECHNIQUE: After the administration of intravenous contrast, 2 mm thick sections acquired from the pulmonary apices to the posterior costophrenic angles. 3-dimensional maximum intensity projection (MIP) coronal and sagittal reformats were then acquired through the thorax. For radiation dose reduction, the following was used: automated exposure control, adjustment of mA and/or kV according to patient size. COMPARISON: [facility], CR, XR CHEST 1V, 02/17/2019, 12:12. FINDINGS: Image quality: Excellent. Pulmonary arteries: Pulmonary arteries are normal in size, and demonstrate no intraluminal filling defects to suggest central pulmonary embolism. Lungs and pleura: Lungs are clear. No pleural effusions or pneumothorax. Central and peripheral airways are patent. Mediastinum: Heart size is normal, without pericardial effusion. No mediastinal or hilar adenopathy. Thoracic aorta is normal in caliber and enhancement. Esophagus is normal in caliber, without a significant hiatal hernia. Bones and chest wall: No suspicious bony lesions. Ribs and thoracic spine appear intact throughout. Thyroid gland demonstrates no significant CT abnormality. No axillary or supraclavicular adenopathy. Abdomen: Visualized upper abdominal solid organs appear normal in the early arterial phase of enhancement. IMPRESSION: Negative for pulmonary embolism. Dictated by: Robert Aceves M.D. on 02/17/2019 at 12:43 Approved by: Robert Aceves M.D. on 02/17/2019 at 12:45
[2019-02-17 12:52] LABS: Add Manual Diff / Slide Review NO; Basophils Absolute Auto 0 /uL (0-100); Basophils Percent Auto 0.5 % (0-2); Eosinophils Absolute Auto 200 /uL (0-450); Eosinophils Percent Auto 2.7 % (2-4); Hematocrit 37.5 % (36-46); Hemoglobin 12.9 g/dL (12.0-16.0); Lymphocytes Absolute Auto 2800 /uL (1100-4500); Lymphocytes Percent Auto 45.2 % (25-40); Mean Corpuscular HGB Conc 34.3 % (30-36); Mean Corpuscular Hemoglobin 33.1 PG (26-34); Mean Corpuscular Volume 96.5 fL (80-100); Monocytes Absolute Auto 400 /uL (0-900); Monocytes Percent Auto 5.9 % (3-14); Neutrophils Absolute Auto 2800 /uL (1500-7000); Neutrophils Percent Auto 45.7 % (50-75); Platelet Count 220 X10^3/uL (150-400); Red Blood Cell Count 3.89 X10^6/uL (4.0-5.2); Red Cell Distribution Width 12.6 % (11.6-14.8); White Blood Cell Count 6.2 X10^3/uL (4.5-11.0)
[2019-02-17 13:00] VITALS: BP 108/74; PULSE 73; RESP 18; O2SAT 98
[2019-02-17 13:00] LABS: Prothrombin Time 11.6 SECONDS (10.1-12.7)
[2019-02-17 13:02] LABS: PTT Partial Thromboplastin Tim 33 SECONDS (26.4-36.2)
[2019-02-17 13:03] LABS: Alanine Aminotransferase 10 IU/L (9-52); Albumin Globulin Ratio 1.5 (1.0-2.8); Alkaline Phosphatase 65 U/L (38-126); Aspartate Aminotransferase 16 IU/L (14-36); BUN Creatinine Ratio 26.7 (6-22); Bilirubin Total 0.6 mg/dL (0.2-1.3); Blood Urea Nitrogen 16 mg/dL (7-17); Calcium 9.2 mg/dL (8.4-10.2); Carbon Dioxide 24 mmol/L (22-32); Chloride 110 mmol/L (98-107); Creatine Kinase 57 U/L (30-135); Estimated Glomerular Filt Rate > 60.0 mL/min (>60); Globulin 2.6 g/dL (1.7-4.1); Glucose 89 mg/dL (70-100); HEMOLYSIS < 15 (0-50); Lipase 106 U/L (23-300); Sodium 141 mmol/L (137-145); Total Protein 6.6 g/dL (6.3-8.2)
[2019-02-17 13:13] LABS: Pregnancy Test Serum,Qual Negative (Negative)
[2019-02-17 13:15] LABS: Troponin I < 0.012 ng/mL (0.01-0.034)
[2019-02-17 13:43] LABS: Thyroid Stimulating Hormone 0.28 uIU/mL (0.47-4.68)
[2019-02-17 13:45] VITALS: BP 110/74; PULSE 68; RESP 18; O2SAT 98
[2019-02-17 14:12] VITALS: BP 106/69; PULSE 71; RESP 16; O2SAT 99
== END 2019-02-17 14:26 | disposition home or self-care (01) ==
PROVIDERS: Emergency Provider Emergency Medicine; PCP Family Medicine
DX: R06.02 Shortness of breath (principal); E05.90 Thyrotoxicosis, unspecified without thyrotoxic crisis or storm; R07.89 Other chest pain
CPT/HCPCS: 36591; 71045; 71275; 80053; 82550; 83690; 84443; 84484; 84703; 85025; 85610; 85730; 93005; 99283; 99285; Q9967

== ENCOUNTER 2019-04-24 17:20 | Emergency (ER) | payer OTHER, MEDICAID, SELFPAY ==
[2019-04-24 17:27] VITALS: BP 128/88; PULSE 105; RESP 16; TEMP 36.8; O2SAT 99; BMI 25.0
[2019-04-24 17:43] LABS: Add Manual Diff / Slide Review NO; Basophils Absolute Auto 100 /uL (0-100); Basophils Percent Auto 0.7 % (0-2); Eosinophils Absolute Auto 200 /uL (0-450); Eosinophils Percent Auto 1.9 % (2-4); Hematocrit 41.7 % (36-46); Hemoglobin 14.6 g/dL (12.0-16.0); Lymphocytes Absolute Auto 3700 /uL (1100-4500); Lymphocytes Percent Auto 41.1 % (25-40); Mean Corpuscular Hemoglobin 33.8 PG (26-34); Mean Corpuscular Volume 96.5 fL (80-100); Monocytes Absolute Auto 700 /uL (0-900); Neutrophils Absolute Auto 4400 /uL (1500-7000); Neutrophils Percent Auto 48.3 % (50-75); Platelet Count 232 X10^3/uL (150-400); Red Blood Cell Count 4.32 X10^6/uL (4.0-5.2); Red Cell Distribution Width 13.1 % (11.6-14.8)
[2019-04-24 17:59] LABS: Albumin 4.2 g/dL (3.5-5.0); Albumin Globulin Ratio 1.3 (1.0-2.8); Alkaline Phosphatase 69 U/L (38-126); Amylase 74 U/L (30-110); Aspartate Aminotransferase 20 IU/L (14-36); BUN Creatinine Ratio 26.7 (6-22); Bilirubin Total 0.9 mg/dL (0.2-1.3); Blood Urea Nitrogen 16 mg/dL (7-17); Calcium 9.4 mg/dL (8.4-10.2); Carbon Dioxide 23 mmol/L (22-32); Chloride 108 mmol/L (98-107); Estimated Glomerular Filt Rate > 60.0 mL/min (>60); Globulin 3.2 g/dL (1.7-4.1); Glucose 93 mg/dL (70-100); Lipase 164 U/L (23-300); Potassium 4.2 mmol/L (3.4-5.1); Sodium 138 mmol/L (137-145); Total Protein 7.4 g/dL (6.3-8.2)
[2019-04-24] MEDS: SODIUM CHLORIDE 0.9% 1,000 ML 1000 ML IV ×2 (18:01→18:10)
[2019-04-24 18:04] LABS: Bacteria Urine Moderate (10-30); Mucus Urine 1+ (Negative); RBC Urine 1-5/HPF (0-5/HPF); Squamous Epithelial Cell Urine 5-10 /HPF (0-5/HPF); WBC Urine 0-1/HPF (0-5/HPF)
[2019-04-24 18:05] LABS: Culture Indicated Urine Cult Not Indicated
[2019-04-24] MEDS: ONDANSETRON 4 MG/2 ML INJ IV (18:07)
[2019-04-24] MEDS: MORPHINE 4 MG/ML INJ IV (18:07)
[2019-04-24 18:13] LABS: HEMOLYSIS 42 (0-50)
[2019-04-24 18:14] LABS: Alanine Aminotransferase 14 IU/L (9-52)
--- NOTE | 2019-04-24 18:17 | DI.CT.S_ITS ---
PROCEDURE: CT KIDNEY URETER BLADDER (KUB) INDICATIONS: left flank pain TECHNIQUE: Noncontrast 5 mm thick sections acquired from the diaphragms to the symphysis. 5 mm thick coronal and sagittal reformats were then performed. For radiation dose reduction, the following was used: automated exposure control, adjustment of mA and/or kV according to patient size. COMPARISON: [facility], CT, KIDNEY/ URETER/BLADDER, 11/27/2015, 21:02. [facility], CT, KIDNEY/ URETER/BLADDER, 07/06/2014, 10:03. FINDINGS: Image quality: Excellent. Lung bases: Lung bases are clear. Heart size is normal. Urinary system: Both kidneys are normal in size. No kidney stones. No hydronephrosis or perinephric fat stranding. Both ureters appear non-dilated throughout their expected courses. Bladder wall thickness is normal; no calcified bladder stones. Other solid organs: Liver is normal in size. Gallbladder appears normal. Pancreas is normal in contours. Spleen is normal in size. No adrenal nodules. Peritoneum and bowel: Unenhanced bowel loops demonstrate normal wall thickness and caliber. No free fluid or air. Nodes and vessels: No retroperitoneal or mesenteric adenopathy by size criteria. Aorta and inferior vena cava are normal in caliber. Abdominal wall: No ventral hernias. Pelvis: No free pelvic fluid. No inguinal hernias or adenopathy. Prior hysterectomy. Bones: No suspicious bony lesions. No vertebral body compression fractures. IMPRESSION: No urinary tract stone or obstruction found. Source of current reported left-sided flank pain is not seen. Prior hysterectomy. Dictated by: Siddharth Parsons M.D. on 04/24/2019 at 19:08 Approved by: Siddharth Parsons M.D. on 04/24/2019 at 19:09
--- NOTE | 2019-04-24 19:59 | ED.FEMALEGU ---
HPI - Female Genitourinary <CARYN Turner - Last Filed: 04/24/19 21:12> General Chief complaint: Urogenital-Female Stated complaint: states kidney issues Time Seen by Provider: 04/24/19 17:34 Source: patient Mode of arrival: ambulatory Limitations: no limitations History of Present Illness HPI Narrative: The patient is a 34-year-old female current smoker with history of kidney stones who presents with a chief complaint of left-sided flank pain. 3 days ago, and urinate some blood clots. She reports nausea and vomiting. She states that this is consistent with previous kidney stones. She states that yesterday she had a temperature of up to 101, but is not have 1 today. She denies any cough, congestion, chest pain or shortness of breath. She denies any vaginal discharge, lower abdominal pain other than her left-sided flank pain or concern about sexually transmitted infections. 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 She thinks that her flank pain could be from a UTI, kidney stone and/or dehydration Related Data Home Medications Medication Instructions Recorded Confirmed diazepam 5 mg PO PRN PRN #0 11/01/16 02/17/19 clonazepam 2 mg PO BID #0 02/11/17 02/17/19 albuterol sulfate [Ventolin HFA] 2 puff INH Q4HP PRN 02/17/19 02/17/19 dextroamphetamine-amphetamine 30 mg PO TID 02/17/19 02/17/19 lorazepam 1 mg PO BID 02/17/19 02/17/19 naloxone [Narcan] 1 spray INTRANASAL PRN PRN 02/17/19 02/17/19 omeprazole 20 mg PO BID 02/17/19 02/17/19 Allergies Allergy/AdvReac Type Severity Reaction Status Date / Time varenicline Allergy Unknown Verified 04/24/19 17:31 hydrocodone AdvReac Mild VOMITING - Verified 04/24/19 17:31 CAN TAKE W/ PHENERGAN Review of Systems <CARYN Turner - Last Filed: 04/24/19 21:12> Review of Systems GENERAL: Denies chills, fatigue, malaise, fever, sweats. HEENT: Denies sinus pain, ear pain, sore throat, difficulty swallowing, dizziness. RESPIRATORY: Denies dyspnea, cough, wheezing, hemoptysis, sputum. CARDIOVASCULAR: Denies chest pain, palpitations, orthopnea, edema, GASTROINTESTINAL: See HPI : See HPI MUSCULOSKELETAL: denies weakness, joint pain, or bony pain SKIN: Denies rash, skin lesions, or other NEUROLOGIC: Denies weakness, headache, numbness, change in speech, confusion, seizures, incoordination. PSYCHIATRIC: No concerning psychosocial issues. 12 point review of systems is negative except for those stated above PFSH <CARYN Turner - Last Filed: 04/24/19 21:12> Medical History Up to date with tetanus toxoid immunization (Acute) Migraines (Chronic) Surgical History History of third molar tooth extraction Status post breast reduction Status post hysterectomy Status post laparoscopy (09/22/14) Social History Smoking Status: Current every day smoker Social History Smoking Status: Current every day smoker Exam <CARYN Turner - Last Filed: 04/24/19 21:12> Narrative Exam Narrative: GENERAL: This is a well-nourished, well-developed patient, appears uncomfortable HEAD: Atraumatic. Normocephalic. No temporal or scalp tenderness. EYES: Pupils equal round and reactive. Extraocular motions intact. No scleral icterus. No injection or drainage. ENT: Nose without bleeding, purulent drainage or septal hematoma. Throat without erythema, tonsillar hypertrophy or exudate. Uvula midline. Airway patent. NECK: Trachea midline. No JVD or lymphadenopathy. Supple, nontender, no meningeal signs. CARDIOVASCULAR: Regular rate and rhythm without murmurs, gallops, or rubs. RESPIRATORY: Clear to auscultation. Breath sounds equal bilaterally. No wheezes, rales, or rhonchi. No cough. No increased respiratory effort. No accessory muscle use. GASTROINTESTINAL: Abdomen soft, diffuse tenderness left lower quadrant, nondistended. No hepato-splenomegaly, or palpable masses. No guarding. Active bowel sounds all 4 quadrants. EXTREMITIES: No clubbing, cyanosis, or edema. No joint tenderness, effusion, or edema noted. BACK: Nontender without deformity or crepitance. CVA tenderness noted on left side. No CVA tenderness right side. NEURO: AOx3. SKIN: No rash or erythema. Initial Vital Signs Initial Vital Signs: Vital Signs Temperature 98.3 F 04/24/19 17:27 Pulse Rate 105 H 04/24/19 17:27 Respiratory Rate 16 04/24/19 17:27 Blood Pressure 128/88 04/24/19 17:27 Pulse Oximetry 99 04/24/19 17:27 <Rene Larsen DO - Last Filed: 04/25/19 04:06> Initial Vital Signs Initial Vital Signs: Vital Signs Temperature 98.3 F 04/24/19 17:27 Pulse Rate 105 H 04/24/19 17:27 Respiratory Rate 16 04/24/19 17:27 Blood Pressure 128/88 04/24/19 17:27 Pulse Oximetry 99 04/24/19 17:27 Course <EMA Turner-BC - Last Filed: 04/24/19 21:12> Orders Ordered: Discontinued Medications Sodium Chloride (Normal Saline 0.9%) 1,000 mls @ 1,000 mls/hr IV BOLUS ONE Stop: 04/24/19 18:35 Last Infusion: 04/24/19 19:39 Dose: 0 mls/hr Admin: 04/24/19 18:01 Dose: 1,000 mls/hr Sodium Chloride (Normal Saline 0.9%) 1,000 mls @ 1,000 mls/hr IV BOLUS ONE Stop: 04/24/19 18:48 Last Infusion: 04/24/19 21:02 Dose: 0 mls/hr Admin: 04/24/19 18:10 Dose: 1,000 mls/hr Ketorolac Tromethamine (Toradol) 30 mg IV NOW ONE Stop: 04/24/19 20:30 Last Admin: 04/24/19 20:35 Dose: Not Given Morphine Sulfate (Morphine) 4 mg IV NOW ONE Stop: 04/24/19 17:50 Last Admin: 04/24/19 18:07 Dose: 4 mg Ondansetron HCl (Zofran) 4 mg IV NOW ONE Stop: 04/24/19 17:50 Last Admin: 04/24/19 18:07 Dose: 4 mg Vital Signs - 8 hr 04/24/19 17:27 04/24/19 20:00 Temperature 98.3 F Pulse Rate 105 H 94 H Respiratory Rate 16 Blood Pressure 128/88 Blood Pressure [Right Arm] 108/62 Pulse Oximetry 99 98 <Rene Larsen DO - Last Filed: 04/25/19 04:06> Orders Ordered: Discontinued Medications Sodium Chloride (Normal Saline 0.9%) 1,000 mls @ 1,000 mls/hr IV BOLUS ONE Stop: 04/24/19 18:35 Last Infusion: 04/24/19 19:39 Dose: 0 mls/hr Admin: 04/24/19 18:01 Dose: 1,000 mls/hr Sodium Chloride (Normal Saline 0.9%) 1,000 mls @ 1,000 mls/hr IV BOLUS ONE Stop: 04/24/19 18:48 Last Infusion: 04/24/19 21:02 Dose: 0 mls/hr Admin: 04/24/19 18:10 Dose: 1,000 mls/hr Ketorolac Tromethamine (Toradol) 30 mg IV NOW ONE Stop: 04/24/19 20:30 Last Admin: 04/24/19 20:35 Dose: Not Given Morphine Sulfate (Morphine) 4 mg IV NOW ONE Stop: 04/24/19 17:50 Last Admin: 04/24/19 18:07 Dose: 4 mg Ondansetron HCl (Zofran) 4 mg IV NOW ONE Stop: 04/24/19 17:50 Last Admin: 04/24/19 18:07 Dose: 4 mg Vital Signs - 8 hr 04/24/19 17:27 04/24/19 20:00 Temperature 98.3 F Pulse Rate 105 H 94 H Respiratory Rate 16 Blood Pressure 128/88 Blood Pressure [Right Arm] 108/62 Pulse Oximetry 99 98 MDM - Female Genitourinary <EMA Turner- - Last Filed: 04/24/19 21:12> Lab Data Result diagrams: 04/24/19 17:41 04/24/19 17:41 Lab Results 08/18/19 08/18/19 08/18/19 Range/Units 17:41 17:41 17:53 WBC 9.0 (4.5-11.0) X10^3/uL RBC 4.32 (4.0-5.2) X10^6/uL Hgb 14.6 (12.0-16.0) g/dL Hct 41.7 (36-46) % MCV 96.5 (80-100) fL MCH 33.8 (26-34) PG MCHC 35.0 (30-36) % RDW 13.1 (11.6-14.8) % Plt Count 232 (150-400) X10^3/uL Neut % (Auto) 48.3 L (50-75) % Lymph % (Auto) 41.1 H (25-40) % [place] % (Auto) 8.0 (3-14) % Eos % (Auto) 1.9 L (2-4) % Baso % (Auto) 0.7 (0-2) % Neut # (Auto) 4400 (5324-8258) /uL Lymph # (Auto) 3700 (5796-0467) /uL [place] # (Auto) 700 (0-900) /uL Eos # (Auto) 200 (0-450) /uL Baso # (Auto) 100 (0-100) /uL Sodium 138 (137-145) mmol/L Potassium 4.2 (3.4-5.1) mmol/L Chloride 108 H (98-107) mmol/L Carbon Dioxide 23 (22-32) mmol/L BUN 16 (7-17) mg/dL Creatinine 0.60 (0.52-1.04) mg/dL Estimated GFR > 60.0 (>60) mL/min BUN/Creatinine Ratio 26.7 H (6-22) Glucose 93 (70-100) mg/dL Calcium 9.4 (8.4-10.2) mg/dL Total Bilirubin 0.9 (0.2-1.3) mg/dL AST 20 (14-36) IU/L ALT 14 (9-52) IU/L Alkaline Phosphatase 69 (38-126) U/L Total Protein 7.4 (6.3-8.2) g/dL Albumin 4.2 (3.5-5.0) g/dL Globulin 3.2 (1.7-4.1) g/dL Albumin/Globulin Ratio 1.3 (1.0-2.8) Amylase 74 (30-110) U/L Lipase 164 (23-300) U/L Urine RBC 1-5/hpf (0-5/HPF) Urine WBC 0-1/hpf (0-5/HPF) Ur Squamous Epith Cells 5-10 /hpf H (0-5/HPF) Urine Bacteria Moderate (10-30) H (None) Urine Mucus 1+ H (Negative) Ur Culture Indicated? Cult not indicated Micro UA Comment Urine Dip Bedside Urine Glucose Negative Bedside Urine Bilirubin - Negative Bedside Urine Ketone +/- 5 Urine Specific [place] 1.030 Bedside Urine Occult Blood - Negative Bedside Urine pH 6.0 Bedside Urine Protein +/- 15 Bedside Urine Urobilinogen +/- 1mg Bedside Urine Nitrite - Negative Bedside Urine Leukocytes - Negative Esterase Imaging Data CT KUB: Radiologist's impression: [address] [address] [address] Scan Report Signed Patient: Coral Gallardo LMR#: [id number] : 1985Acct:[id number] Age/Sex: 34 / FDate of Service: 04/24/19 Loc: ED Accession Number: [id number] Procedure: CT kidney ureter bladder (KUB) Ordering Provider: Mamta Weiner PROCEDURE: CT KIDNEY URETER BLADDER (KUB) INDICATIONS: left flank pain TECHNIQUE: Noncontrast 5 mm thick sections acquired from the diaphragms to the symphysis. 5 mm thick coronal and sagittal reformats were then performed. For radiation dose reduction, the following was used: automated exposure control, adjustment of mA and/or kV according to patient size. COMPARISON: [facility], CT, KIDNEY/ URETER/BLADDER, 11/27/2015, 21:02. [facility], CT, KIDNEY/ URETER/BLADDER, 07/06/2014, 10:03. FINDINGS: Image quality: Excellent. Lung bases: Lung bases are clear. Heart size is normal. Urinary system: Both kidneys are normal in size. No kidney stones. No hydronephrosis or perinephric fat stranding. Both ureters appear non-dilated throughout their expected courses. Bladder wall thickness is normal; no calcified bladder stones. Other solid organs: Liver is normal in size. Gallbladder appears normal. Pancreas is normal in contours. Spleen is normal in size. No adrenal nodules. Peritoneum and bowel: Unenhanced bowel loops demonstrate normal wall thickness and caliber. No free fluid or air. Nodes and vessels: No retroperitoneal or mesenteric adenopathy by size criteria. Aorta and inferior vena cava are normal in caliber. Abdominal wall: No ventral hernias. Pelvis: No free pelvic fluid. No inguinal hernias or adenopathy. Prior hysterectomy. Bones: No suspicious bony lesions. No vertebral body compression fractures. IMPRESSION: No urinary tract stone or obstruction found. Source of current reported left-sided flank pain is not seen. Prior hysterectomy. Dictated by: Siddharth Parsons M.D. on 04/24/2019 at 19:08 Approved by: Siddharth Parsons M.D. on 04/24/2019 at 19:09 [facility] Narrative Medical decision making narrative: The patient is a 34-year-old female who presents with a chief complaint of flank pain. She is concerned about a kidney stone, however has a negative CT KUB. The patient has no leukocytosis, no right lower quadrant pain, a nonacute abdominal exam. She is initially treated with IV fluids and morphine. She was also given Zofran. Her 1st urinalysis came back with many squamous, too many squamous to warrant a urine culture. This sample was some small cannot be spun in the lab. In the meantime a 2nd L of IV fluid is given. The patient stated her pain was coming back, I which point she was offered Toradol. The patient declined the Toradol, and stated she wanted something stronger. I discussed that the Toradol works well for kidney pain. The patient and her friend requested IV Dilaudid. I stated that without a specific indication, I would like to try IV Toradol 1st for hurts NSAID an anti-inflammatory effects. The patient was yelling, swearing in the exam room that I was not listening to her or respecting her pain. I discussed that we have been listening to her, which is why she is given several L of IV fluids as well as had a CT KUB. Likely the patient is without fever, leukocytosis and has normal kidney function in the emergency department. I discussed that I would like to get a 2nd urinalysis that could be spine in order to help rule out infection. She elected to leave against medical advice as I would not give her other narcotics prior to trying Toradol. She signed out against medical advice. <Rene De La Cruzan, DO - Last Filed: 04/25/19 04:06> Lab Data Lab Results 04/24/19 04/24/19 04/24/19 Range/Units 17:41 17:41 17:53 WBC 9.0 (4.5-11.0) X10^3/uL RBC 4.32 (4.0-5.2) X10^6/uL Hgb 14.6 (12.0-16.0) g/dL Hct 41.7 (36-46) % MCV 96.5 (80-100) fL MCH 33.8 (26-34) PG MCHC 35.0 (30-36) % RDW 13.1 (11.6-14.8) % Plt Count 232 (150-400) X10^3/uL Neut % (Auto) 48.3 L (50-75) % Lymph % (Auto) 41.1 H (25-40) % [place] % (Auto) 8.0 (3-14) % Eos % (Auto) 1.9 L (2-4) % Baso % (Auto) 0.7 (0-2) % Neut # (Auto) 4400 (2804-3083) /uL Lymph # (Auto) 3700 (1178-7715) /uL [place] # (Auto) 700 (0-900) /uL Eos # (Auto) 200 (0-450) /uL Baso # (Auto) 100 (0-100) /uL Sodium 138 (137-145) mmol/L Potassium 4.2 (3.4-5.1) mmol/L Chloride 108 H (98-107) mmol/L Carbon Dioxide 23 (22-32) mmol/L BUN 16 (7-17) mg/dL Creatinine 0.60 (0.52-1.04) mg/dL Estimated GFR > 60.0 (>60) mL/min BUN/Creatinine Ratio 26.7 H (6-22) Glucose 93 (70-100) mg/dL Calcium 9.4 (8.4-10.2) mg/dL Total Bilirubin 0.9 (0.2-1.3) mg/dL AST 20 (14-36) IU/L ALT 14 (9-52) IU/L Alkaline Phosphatase 69 (38-126) U/L Total Protein 7.4 (6.3-8.2) g/dL Albumin 4.2 (3.5-5.0) g/dL Globulin 3.2 (1.7-4.1) g/dL Albumin/Globulin Ratio 1.3 (1.0-2.8) Amylase 74 (30-110) U/L Lipase 164 (23-300) U/L Urine RBC 1-5/hpf (0-5/HPF) Urine WBC 0-1/hpf (0-5/HPF) Ur Squamous Epith Cells 5-10 /hpf H (0-5/HPF) Urine Bacteria Moderate (10-30) H (None) Urine Mucus 1+ H (Negative) Ur Culture Indicated? Cult not indicated Micro UA Comment Urine Dip Bedside Urine Glucose Negative Bedside Urine Bilirubin - Negative Bedside Urine Ketone +/- 5 Urine Specific [place] 1.030 Bedside Urine Occult Blood - Negative Bedside Urine pH 6.0 Bedside Urine Protein +/- 15 Bedside Urine Urobilinogen +/- 1mg Bedside Urine Nitrite - Negative Bedside Urine Leukocytes - Negative Esterase Discharge Plan Departure Patient Disposition: Home Clinical Impression: Left against medical advice Discharge Date/Time: 04/24/19 21:00 Interventions: ED Discharge Assessment Last Done: 04/24/19 21:17 Prescriptions: No Action diazepam 5 MG tablet 5 mg PO PRN PRN (Reason: Anxiety) Qty: 0 RF: 0 clonazepam 2 MG tablet 2 mg PO BID Qty: 0 RF: 0 dextroamphetamine-amphetamine 30 mg tablet 30 mg PO TID RF: 0 omeprazole 20 mg capsule,delayed release(DR/EC) 20 mg PO BID RF: 0 lorazepam 1 mg tablet 1 mg PO BID RF: 0 Narcan 4 mg/actuation spray,non-aerosol 1 spray intranasal PRN PRN (Reason: Opiate Reversal) RF: 0 albuterol sulfate [Ventolin HFA] 90 MCG/PUFF HFA aerosol inhaler 2 puff INH Q4HP PRN (Reason: Shortness Of Breath) RF: 0 Referrals: Dre Maxwell MD [Primary Care Provider] - <Rene Larsen DO - Last Filed: 04/25/19 04:06> Cosign ED Attending Dorothy Attestation: I was immediately available in the department for consultation. Documentation has been reviewed. I agree with assessment and plan.
[2019-04-24 20:00] VITALS: BP 108/62; PULSE 94; O2SAT 98
--- NOTE | 2019-04-24 20:13 | PC.NURSE ---
Pt assisted to bathroom where she was only about void scant amt urine (~5ml). Pt c/o increasing pain, Regine notified. Urine sent for UA per Regine's order.
--- NOTE | 2019-04-24 20:45 | PC.NURSE ---
Pt is becoming increasingly anxious/agitated, states she wants to leave. All you're doing for me is giving me fluid, I can drink water at home. Plan of care reviewed with pt-- that it may take 3-4 liters of IVF for a dehydrated pt to produce urine, and she has only had 1.5liters in. Pt c/o increasing pain-- offered Toradol but declined. Pt stating repeatedly that she wants to go, I reviewed plan of care again and encouraged her to stay for hydration and further monitoring. Regine at bedside to speak with pt, pt is now considering whether to leave AMA or stay.
--- NOTE | 2019-04-24 21:05 | PC.NURSE ---
Pt was eating a burrito with a friend at the bedside when I returned to ask if she had decided to stay. Pt was upset, stated that Regine had told her she could finish her IVF, receive abx and pain med, and go home. Expressed frustration about perceived lack of communication between staff. Pt requested dilaudid. Plan of care reviewed again with pt-- toradol for pain, hydration to produce a larger urine sample. Pt tearful, agitated. Stated, This is bullshit, I'm going to call Dinesh and submit a grievance. Emotional support given without effect, pt signed out AMA and left department.
== END 2019-04-24 21:00 | disposition home or self-care (01) ==
PROVIDERS: Emergency Provider Nurse Practitioner Family; PCP Family Medicine
DX: R10.9 Unspecified abdominal pain (principal); Z53.21 Procedure and treatment not carried out due to patient leaving prior to being seen by health care provider
CPT/HCPCS: 36591; 51798; 74176; 80053; 81003; 81015; 82150; 83690; 85025; 96361; 96374; 96375; 99284; J1885; J2270; J2405

== ENCOUNTER → 2019-04-28 16:28 | Outpatient (CLI) | payer OTHER, MEDICAID, SELFPAY | PROVIDERS: PCP Family Medicine; Visit Provider Family Medicine | DX: N15.9 Renal tubulo-interstitial disease, unspecified (principal) | CPT/HCPCS: 87086 ==

== ENCOUNTER 2019-06-02 06:06 | Emergency (ER) | payer OTHER, MEDICAID, SELFPAY ==
[2019-06-02 06:15] VITALS: BP 137/102; PULSE 103; RESP 20; TEMP 37.1; O2SAT 98; BMI 22.7
--- NOTE | 2019-06-02 06:17 | DI.RAD.S_ITS ---
PROCEDURE: XR CHEST 1V INDICATIONS: injury to chest TECHNIQUE: One view of the chest was acquired. COMPARISON: [facility], CT, CT CHEST ABD PEL W CON, 06/02/2019, 6:24. [facility], CR, XR CHEST 1V, 02/17/2019, 12:12. FINDINGS: Surgical changes and devices: None. Lungs and pleura: Lungs are clear. No pleural effusions or pneumothorax. Mediastinum: Mediastinal contours appear normal. Heart size is normal. Bones and chest wall: No suspicious bony lesions. Overlying soft tissues appear unremarkable. IMPRESSION: No acute cardiopulmonary disease. Dictated by: Aysha Jasso M.D. on 06/02/2019 at 8:49 Approved by: Aysha Jasso M.D. on 06/02/2019 at 8:50
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
[2019-06-02] MEDS: ALBUTEROL/IPRATROPIUM 3 ML AMPUL INH (06:27)
[2019-06-02 06:29] VITALS: PULSE 103; RESP 20; O2SAT 98
[2019-06-02] MEDS: ONDANSETRON 4 MG/2 ML INJ IV (06:40)
[2019-06-02 06:41] LABS: Add Manual Diff / Slide Review NO; Basophils Absolute Auto 100 /uL (0-100); Basophils Percent Auto 0.6 % (0-2); Eosinophils Absolute Auto 100 /uL (0-450); Eosinophils Percent Auto 1.6 % (2-4); Hematocrit 42.8 % (36-46); Hemoglobin 14.8 g/dL (12.0-16.0); Lymphocytes Absolute Auto 4800 /uL (1100-4500); Lymphocytes Percent Auto 50.7 % (25-40); Mean Corpuscular HGB Conc 34.6 % (30-36); Mean Corpuscular Hemoglobin 33.9 PG (26-34); Mean Corpuscular Volume 98.2 fL (80-100); Monocytes Absolute Auto 500 /uL (0-900); Monocytes Percent Auto 5.4 % (3-14); Neutrophils Absolute Auto 4000 /uL (1500-7000); Neutrophils Percent Auto 41.7 % (50-75); Platelet Count 232 X10^3/uL (150-400); Red Blood Cell Count 4.36 X10^6/uL (4.0-5.2); White Blood Cell Count 9.5 X10^3/uL (4.5-11.0)
[2019-06-02] MEDS: HYDROMORPHONE 1 MG INJ IV (06:41)
[2019-06-02] MEDS: SODIUM CHLORIDE 0.9% 1,000 ML 150 ML IV (06:41)
[2019-06-02 06:52] LABS: Alanine Aminotransferase 14 IU/L (9-52); Albumin 4.5 g/dL (3.5-5.0); Albumin Globulin Ratio 1.6 (1.0-2.8); Alkaline Phosphatase 78 U/L (38-126); Aspartate Aminotransferase 25 IU/L (14-36); Bilirubin Total 0.5 mg/dL (0.2-1.3); Blood Urea Nitrogen 9 mg/dL (7-17); Calcium 9.5 mg/dL (8.4-10.2); Carbon Dioxide 24 mmol/L (22-32); Chloride 103 mmol/L (98-107); Estimated Glomerular Filt Rate > 60.0 mL/min (>60); Ethanol (ETOH) 16 mg/dL; Globulin 2.8 g/dL (1.7-4.1); Glucose 88 mg/dL (70-100); HEMOLYSIS < 15 (0-50); Lipase 584 U/L (23-300); Potassium 3.7 mmol/L (3.4-5.1); Sodium 140 mmol/L (137-145); Total Protein 7.3 g/dL (6.3-8.2)
[2019-06-02 06:53] LABS: PTT Partial Thromboplastin Tim 31 SECONDS (26.4-36.2)
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
--- NOTE | 2019-06-02 07:28 | PC.NURSE ---
pt appears to be uncomfortable, unable to keep legs still on bed. pt questioning why she needs to give a urine. pt states she has had hysterectomy. pt unable to give urine at this time. asks what does it have to do with my ribs.
[2019-06-02] MEDS: KETOROLAC 60 MG/2 ML VIAL 30 MG IV (07:44)
== END 2019-06-02 08:00 | disposition home or self-care (01) ==
PROVIDERS: Emergency Provider Emergency Medicine; PCP Family Medicine
DX: R04.2 Hemoptysis (principal); S20.212A Contusion of left front wall of thorax, initial encounter
CPT/HCPCS: 36415; 71045; 71260; 74177; 80053; 80320; 83690; 85025; 85730; 93005; 93010; 94640; 96374; 96375; 99283; 99285; J1170; J1885; J2405; Q9967